=== PATIENT | female | born 1985 | race African-American/Black ===

== ENCOUNTER 2017-06-15 12:17 | Inpatient (IN) | payer OTHER ==
[2017-06-15 12:45] VITALS: BMI 35.2
[2017-06-15] MEDS ORDERED: SODIUM CHLORIDE 1,000 ML IV STA (12:47)
--- NOTE | 2017-06-15 12:54 | PDOC ---
History of Present Illness <Giovanny Meltonanda - Last Filed: 06/15/17 13:04> - General History Source: Patient - History of Present Illness Timing/Duration: reports: getting worse Quality: reports: severe <Kath RolandFrancescoOmayra - Last Filed: 06/15/17 15:07> <Janette Simon - Last Filed: 06/19/17 13:13> - General Chief Complaint: Vaginal Bleeding Stated Complaint: VAGINAL BLEEDING Time Seen by Provider: 06/15/17 12:29 Past History <Giovanny Meltonanda - Last Filed: 06/15/17 13:04> - Past Medical History Anemia: No - Surgical History Abdominal Surgery: No - Reproductive History (#): 3 Para: 2 Cervical CA: No Dysfunctional Uterine Bleeding: No Ectopic : No Endometrial CA: No Polycystic Ovaries: No Therapeutic (s) & number: Yes (1) Tubal Ligation: No - Suicide/Smoking/Psychosocial Hx Smoking Status: No Smoking History: Never smoked Have you smoked in the past 12 months: No Number of Cigarettes Smoked Daily: 0 Information on smoking cessation initiated: No Hx Alcohol Use: No Drug/Substance Use Hx: No Substance Use Type: None <Edel Roland - Last Filed: 06/15/17 15:07> <Janette Simon - Last Filed: 06/19/17 13:13> - Past Medical History Allergies/Adverse Reactions: Allergies Allergy/AdvReac Type Severity Reaction Status Date / Time oliver Allergy Rash Verified 06/15/17 18:45 No Known Drug Allergies Allergy Verified 06/15/17 18:45 Home Medications: Ambulatory Orders Ferrous Sulfate 325 mg PO DAILY 06/15/17 Medroxyprogesterone Acetate [Provera] 10 mg PO DAILY 06/15/17 Review of Systems - Review of Systems Constitutional: Yes: Weakness. No: Fever Respiratory: No: Shortness of Breath Cardiac (ROS): Yes: Lightheadedness. No: Chest Pain, Palpitations, Syncope ABD/GI: No: Nausea, Vomiting, Abdominal cramping <AsuncionDonaldOmayra Last Filed: 06/15/17 15:07> *Physical Exam - Vital Signs Last Vital Signs Temp Pulse Resp BP Pulse Ox 98.5 F 109 H 18 119/68 100 06/15/17 12:39 06/15/17 12:39 06/15/17 12:39 06/15/17 12:39 06/15/17 12:39 <Cherie Melton - Last Filed: 06/15/17 13:04> - Vital Signs Last Vital Signs Temp Pulse Resp BP Pulse Ox 98.5 F 109 H 18 119/68 100 06/15/17 12:39 06/15/17 12:39 06/15/17 12:39 06/15/17 12:39 06/15/17 12:39 - Physical Exam Comments: 06/15/17 12:54 appears mildly lethargic and pale 06/15/17 13:11 General Appearance: Yes: Appropriately Dressed HEENT: positive: Normal Voice Neck: positive: Supple Respiratory/Chest: positive: Lungs Clear, Normal Breath Sounds. negative: Respiratory Distress Cardiovascular: positive: Regular Rate, S1, S2 Gastrointestinal/Abdominal: positive: Soft. negative: Tender Musculoskeletal: negative: CVA Tenderness Extremity: positive: Normal Inspection Integumentary: positive: Dry, Warm Neurologic: positive: Fully Oriented, Alert, Normal Mood/Affect <Edel Roland - Last Filed: 06/15/17 15:07> - Vital Signs Last Vital Signs Temp Pulse Resp BP Pulse Ox 98.6 F 98 H 20 116/54 100 06/17/17 08:00 06/17/17 08:00 06/17/17 08:00 06/17/17 08:00 06/16/17 07:51 <Janette Simon - Last Filed: 06/19/17 13:13> ED Treatment Course - LABORATORY CBC & Chemistry Diagram: 06/15/17 13:05 06/15/17 13:05 <Edel Roland - Last Filed: 06/15/17 15:07> - LABORATORY CBC & Chemistry Diagram: 06/17/17 07:45 06/17/17 07:45 - ADDITIONAL ORDERS Additional order review: Laboratory Results 06/15/17 13:05 Blood Type O POSITIVE Antibody Screen Negative Crossmatch See Detail 06/15/17 13:05 RBC 1.76 L D MCV 90.9 MCHC 31.9 L RDW 15.7 H MPV 8.7 Neutrophils % 76.7 D Lymphocytes % 18.5 D Monocytes % 4.5 Eosinophils % 0.1 D Basophils % 0.2 - Medications Given in the ED: ED Medications Discontinued Medications Generic Name Dose Route Start Last Admin Trade Name Angelica PRN Reason Stop Dose Admin Acetaminophen 650 mg 06/15/17 18:21 06/15/17 18:21 Tylenol - PO 06/15/17 18:22 650 mg NOW ONE Administration Acetaminophen 650 mg 06/15/17 23:50 06/16/17 07:50 Tylenol - PO 650 mg Q6H PRN Administration FEVER OR PAIN Ferrous Sulfate 325 mg 06/16/17 10:00 06/17/17 12:37 Feosol - PO Not Given DAILY MARK Sodium Chloride 1,000 mls @ 1,000 mls/hr 06/15/17 12:47 06/15/17 13:04 Normal Saline - IV 06/15/17 13:46 1,000 mls/hr ASDIR STA Administration Medroxyprogesterone Acetate 10 mg 06/16/17 10:00 06/17/17 12:37 Provera - PO Not Given DAILY MARK Multivit/Folic Acid/Iron 1 tab 06/16/17 12:15 06/17/17 12:38 Vitamins (Sjr) - PO Not Given DAILY MARK <Janette Simon - Last Filed: 06/19/17 13:13> Medical Decision Making - Medical Decision Making 06/15/17 13:04 Dr. Damien You was paged at the office and the patient's case was discussed. ( [phone]) <Cherie Melton - Last Filed: 06/15/17 13:04> - Medical Decision Making 06/15/17 12:48 31-year-old female on control since 2013, here with dizziness and weakness in the setting of menorrhagia. Patient states she got her period on June 02 and has not stopped bleeding and passing large clots. Was seen in ED for same 5 days ago when hemoglobin at that time was 11 with unremarkable findings on ultrasound. Patient was discharged to follow-up with her PHYSICIAN/OPHTHALMOLOGIST. Patient states she saw her residential caregiver over the weekend and was started on iron pills and medroxyprogesterone and states bleeding has somewhat improved but still wearing adult diapers. Patient had since taken herself off her original control. States PHYSICIAN/OPHTHALMOLOGIST also did blood work and told her today via phone that hemoglobin was 8 on labs. Patient continues to have profound weakness and states she has not been to work since last week. Also now using adults diapers for bleeding. No chest pain, shortness of breath or syncope. See exam Symptomatic anemia 2/2 menorrhagia (possibly 2/2 OCP use) Was r/o for preg 5 days ago in ED w/ Hgb of 11 and unremarkable US Hgb 8 in residential caregiver's office 4 days ago on follow up Tachy to 109 in ED and appears pale -IVF -labs -senior advocate c/s -anticipate admission for blood transfusion 06/15/17 12:55 06/15/17 13:06 Pt w/ near syncope while walking to the restroom. Witnessed by boyfriend w/ no head injury or LOC. Pt denies any significant injuries at this time. BP 90s/60s on monitor. IVF and labs in progress. ED attg aware. I paged pt's PMD, Dr You and awaiting to hear back 06/15/17 13:11 06/15/17 13:11 06/15/17 13:34 Hgb 5.1!, down from 11, 5 days ago. 2 units PRBCs ordered. Will contact hospitalist and admit. Will also get PHYSICIAN/OPHTHALMOLOGIST on board 06/15/17 13:36 06/15/17 13:[address] You, patient's PCP, who states patient will need workup by PHYSICIAN/OPHTHALMOLOGIST to rule out source of bleed, i.e., cervical polyp versus malignancy 06/15/17 14:03 Hospitalist aware and pt admitted to Dr Sam. Pt currently stable w/ BP of 115/68. 06/15/17 15:07 At this time have not yet heard back from senior advocate, consult placed in [facility]. Pt remains stable <Edel Roland - Last Filed: 06/15/17 15:07> *DC/Admit/Observation/Transfer <Cherie Melton - Last Filed: 06/15/17 13:04> - Discharge Dispostion Admit: Yes <Edel Roland - Last Filed: 06/15/17 15:07> - Attestations Physician Attestion: I reviewed the case with the mid-level practitioner and agree with the mid- level practitioner's assessment, diagnosis and disposition. <Janette Simon - Last Filed: 06/19/17 13:13> Diagnosis at time of Disposition: Menorrhagia Qualifiers: Menorrahagia type: with irregular cycle Qualified Code(s): N92.1 - Excessive and frequent menstruation with irregular cycle; N92.1 - Excessive and frequent menstruation with irregular cycle - Discharge Dispostion Disposition: HOME Condition at time of disposition: Stable - Referrals
[2017-06-15 13:21] LABS: BASOPHIL 0.2 % (0-2.0); EOSINOPHIL 0.1 % (0-4.5); MCHC 31.9 g/dl (32.0-36.0); MEAN CELL VOLUME 90.9 fl (80-96); MEAN PLT VOLUME 8.7 fl (7.5-11.1); NEUTROPHILS 76.7 % (42.8-82.8); PLATELET COUNT 270 K/MM3 (134-434); RDW 15.7 % (11.6-15.6); WHITE BLOOD COUNT 15.3 K/mm3 (4.0-10.0)
[2017-06-15 13:59] LABS: INR 1.16 (0.82-1.09); PROTHROMBIN TIME (PATIENT) 13.1 SEC (9.98-11.88)
--- NOTE | 2017-06-15 14:02 | HP ---
CHIEF COMPLAINT: dizzy, continuous vaginal bleeding PCP: Dr. You HISTORY OF PRESENT ILLNESS: 31 yr old woman with no significant past medical history bibems due to progressively worsening dizzyness and light headedness for the past 4 days associated with vaginal bleeding. Vaginal bleeding started Jun 02, as per her usual menses but it did not stop. She was saturating overnight pads every 2 hours, then switched to adult diapers due heaviness, notes multiple clots. Was seen in the ED 06/11 for similar complaint. Was seen by her pcp on Thursday and started on Provera (10mg for 5 days and iron pills) which she started on Thursday afternoon. She is dizzy/lightheaded every time she gets up, is barely able to walk a few steps. Has been laying in bed for the past 4 days due to severity of dizziness. a/w occasional headache, blurry vision, exertional dyspnea, and occasionaly tingling at the tips of her fingers and toes. Has been on Camresse ../.15 since 2013, and has a 5-day menses about every 3-4 months, with moderate bleeding. denies weight loss, abx use recently. Since starting Provera notes decrease in vaginal bleeding. ER course was notable for: (1) hgb: 5.0 (2) 2units of prbc's ordered Recent Travel: went to [place] from mid-march, returned in early May - no new exposures, trauma, sick contacts. PAST MEDICAL HISTORY: no significant pmhx PAST SURGICAL HISTORY: c-sections x2, "jazmín olson" march 2016 CHILD MONITOR Hx: thinks she may have had an abnormal pap in the past however follow-up biopsy was negative for any pathology several years ago. menarche: pre-teen, on camresse so she gets about 3-4 periods per year without breakthrough spotting. Social History: 3 children: 13yrs old - no complications with or delivery, 9yr old - required emergent due to hypoxia, healthy baby no post-op complications, 4 yr old child - had a with no post-op complications. Smoking: denies Alcohol:denies Drugs: denies Family History: denies famx hx of cancer, htn, dm. does not know ages of mother/ grandmother's menopause. younger sister with irregular menses. Allergies oliver Allergy (Verified 06/11/17 07:48) Rash HOME MEDICATIONS: Home Medications Medication Instructions Recorded Ferrous Sulfate 325 mg PO DAILY 06/15/17 Medroxyprogesterone Acetate 10 mg PO DAILY 06/15/17 [Provera] REVIEW OF SYSTEMS CONSTITUTIONAL: Present: generalized weakness Absent: fever, chills, diaphoresis, , malaise, loss of appetite, weight change HEENT: Present: blurry vision when dizzy with exertion Absent: rhinorrhea, nasal congestion, throat pain, throat swelling, difficulty swallowing, mouth swelling, ear pain, eye pain, visual changes CARDIOVASCULAR: Present: lightheadedness when trying to walk Absent: chest pain, syncope, palpitations, irregular heart rate, peripheral edema RESPIRATORY: Present: dyspnea with exertion, Absent: cough, shortness of breath, orthopnea, wheezing, stridor, hemoptysis GASTROINTESTINAL: Absent: abdominal pain, abdominal distension, nausea, vomiting, diarrhea, constipation, melena, hematochezia GENITOURINARY: Absent: dysuria, frequency, urgency, hesitancy, hematuria, flank pain, genital pain MUSCULOSKELETAL: Absent: myalgia, arthralgia, joint swelling, back pain, neck pain SKIN: Absent: rash, itching, pallor HEMATOLOGIC/IMMUNOLOGIC: Absent: easy bleeding, easy bruising, lymphadenopathy, frequent infections ENDOCRINE: Absent: unexplained weight gain, unexplained weight loss, heat intolerance, cold intolerance NEUROLOGIC: Present: dizziness Absent: headache, focal weakness or paresthesias, , unsteady gait, seizure, mental status changes, bladder or bowel incontinence PHYSICAL EXAMINATION Vital Signs - 24 hr 06/15/17 06/15/17 12:39 13:09 Temperature 98.5 F Pulse Rate 109 H Pulse Rate [ 97 H Left Radial] Respiratory 18 20 Rate Blood Pressure 119/68 Blood Pressure 92/53 [Right Arm] O2 Sat by Pulse 100 98 Oximetry (%) GENERAL: Awake, alert, and in no acute distress. HEAD: Normal with no signs of trauma. EYES: Pupils equal, round and reactive to light, extraocular movements intact, sclera anicteric, conjunctival pallor. No lid lag. no proptosis EARS, NOSE, THROAT: nares patent, oropharynx clear without exudates. Moist mucous membranes. pale tongue NECK: Normal range of motion, supple without lymphadenopathy, JVD, or masses.no thyromegaly. LUNGS: Breath sounds equal, clear to auscultation bilaterally. No wheezes, and no crackles. No accessory muscle use. HEART: Regular rate and rhythm, normal S1 and S2 without murmur, rub or gallop. ABDOMEN: Soft, nontender, not distended, normoactive bowel sounds, no guarding, no rebound, no masses. lower abdomen with well-healed scar MUSCULOSKELETAL: Normal range of motion at all joints. No bony deformities or tenderness. No CVA tenderness. UPPER EXTREMITIES: 2+ radial pulses, warm, well-perfused. No cyanosis. No clubbing. No peripheral edema. LOWER EXTREMITIES: 2+ dp pulses, warm, well-perfused. No calf tenderness. No peripheral edema. NEUROLOGICAL: Cranial nerves II-XII intact. Normal speech. facial symmetry. no tremor PSYCHIATRIC: Cooperative. Good eye contact. Appropriate mood and affect. SKIN: Warm, dry, normal turgor, no rashes or lesions noted, normal capillary refill. Laboratory Results - last 24 hr 06/15/17 06/15/17 13:05 13:05 WBC 15.3 H D RBC 1.76 L D Hgb 5.1 L* D Hct 16.0 L D MCV 90.9 MCH 29.0 MCHC 31.9 L RDW 15.7 H Plt Count 270 MPV 8.7 Neutrophils % 76.7 D Lymphocytes % 18.5 D Monocytes % 4.5 Eosinophils % 0.1 D Basophils % 0.2 Crossmatch See Detail ASSESSMENT/PLAN: 31 yr old woman presents with the ED with symptomatic anemia found to have hgb of 5.1. - u/s on previous ed visit with thicked endometrium and cervical nabothian cysts #Acute normocytic anemia secondary to dynfuctional uterine bleeding - 2 units prbc's ordered in ED, f/u cbc in the AM - monitor closely post-transfusion, she had low-grade fever 100.1F in the ED after 1st unit of prbc, tylenol po - Dr. Lopez from retail [employer] teammate has been consulted for further work-up given duration and severity of bleeding, may need D&C - continue provera 10mg po started 06/13 to be completed 06/18 for 5 day course - tibc, ferritin, iron, transferrin ordered to r/o iron deficiency incase she requires IV iron #DVt: acute bleed, defer medical ac, scd's while in bed, encourage ambulation #Diet: regular #dispo: likely d/c in the AM if no [employer] teammate procedure indicated at this time and adequate response to prbc's. Visit type - Emergency Visit Emergency Visit: Yes ED Registration Date: 06/15/17 Care time: The patient presented to the Emergency Department on the above date and was hospitalized for further evaluation of their emergent condition. - New Patient This patient is new to me today: Yes Date on this admission: 06/15/17 - Critical Care Critical Care patient: No
[2017-06-15 14:10] LABS: ALBUMIN 2.6 g/dl (3.4-5.0); ALK PHOS 46 U/L (45-117); ANION GAP 11 (8-16); BILIRUBIN,TOTAL 0.2 mg/dL (0.2-1.0); CALCIUM 7.7 mg/dL (8.5-10.1); CO2 23 mmol/L (21-32); CREATININE 0.8 mg/dL (0.55-1.02); GLUCOSE,RANDOM 103 mg/dL (74-106); SGOT/AST 10 U/L (15-37); SGPT/ALT 20 U/L (12-78)
[2017-06-15 14:50] LABS: ANISOCYTOSIS 2+; MACROCYTOSIS FEW; MICROCYTOSIS FEW; POLYCHROMASIA 3+
[2017-06-15 14:51] LABS: TARGET CELLS 1+
[2017-06-15] MEDS ORDERED: ACETAMINOPHEN 325 MG TABLET (FP) ONE (18:19)
[2017-06-15] MEDS ORDERED: ACETAMINOPHEN 325 MG TABLET (FP) PO ONE (18:21)
--- NOTE | 2017-06-15 18:33 | PN ---
Teaching Attending Note Name of Resident: Lisa Ortiz ATTENDING PHYSICIAN STATEMENT I saw and evaluated the patient. I reviewed the resident's note and discussed the case with the resident. I agree with the resident's findings and plan as documented. SUBJECTIVE: This is a 31 year old woman with no significant past medical history who comes to the ER complaining of dizziness and weakness. She says that her menses started on 06/02. Bleeding has continued until now. She was seen in the ER on 06/11. Hemoglobin was 11.4 and TVUS showed slightly thickened endometrium and complex nabothian cysts. On 06/12, she saw her PCP and was found to have hemoglobin 8. She was prescribed Provera and iron which she started on 06/13. The bleeding has improved somewhat since but she has become dizzy and weak. OBJECTIVE: Vital Signs Period Temp Pulse Resp BP Sys/Gm Pulse Ox Last 24 Hr 98.4 F-98.5 F 93-109 18-20 92-157/53-92 97-100 HEENT: Conjunctivae and tongue are pale HEART: S1S2, tachycardic LUNGS: Clear ABDOMEN: Obese, soft, non-tender, non-distended, normal BS EXTREMITIES: No edema Laboratory Tests 06/15/17 06/15/17 06/15/17 13:05 13:05 13:05 WBC 15.3 H D RBC 1.76 L D Hgb 5.1 L* D Hct 16.0 L D MCV 90.9 MCH 29.0 MCHC 31.9 L RDW 15.7 H Plt Count 270 MPV 8.7 Neutrophils % 76.7 D Lymphocytes % 18.5 D Monocytes % 4.5 Eosinophils % 0.1 D Basophils % 0.2 Polychromasia 3+ Anisocytosis 2+ Microcytosis Few Macrocytosis Few Target Cells 1+ PT with INR 13.10 H INR 1.16 H Sodium 141 Potassium 3.8 Chloride 107 Carbon Dioxide 23 Anion Gap 11 BUN 8 Creatinine 0.8 Creat Clearance w eGFR > 60 Random Glucose 103 Calcium 7.7 L Total Bilirubin 0.2 D AST 10 L D ALT 20 D Alkaline Phosphatase 46 D Total Protein 6.0 L D Albumin 2.6 L D Serum , Qual Blood Type Antibody Screen Crossmatch 06/15/17 06/15/17 13:05 13:09 WBC RBC Hgb Hct MCV MCH MCHC RDW Plt Count MPV Neutrophils % Lymphocytes % Monocytes % Eosinophils % Basophils % Polychromasia Anisocytosis Microcytosis Macrocytosis Target Cells PT with INR INR Sodium Potassium Chloride Carbon Dioxide Anion Gap BUN Creatinine Creat Clearance w eGFR Random Glucose Calcium Total Bilirubin AST ALT Alkaline Phosphatase Total Protein Albumin Serum , Qual Negative Blood Type O POSITIVE Antibody Screen Negative Crossmatch See Detail Home Medications Medication Instructions Recorded Ferrous Sulfate 325 mg PO DAILY 06/15/17 Medroxyprogesterone Acetate 10 mg PO DAILY 06/15/17 [Provera] ASSESSMENT AND PLAN: This is a 31 year old woman with no significant past medical history who presented to the ER with dizziness and weakness. 1. Acute blood loss anemia secondary to menorrhagia - Transfuse 2 units PRBCs - Continue Provera, ferrous sulfate - Lab Rep consult
[2017-06-15 23:21] LABS: URINE APPEARANCE SLCLOUDY; URINE BILIRUBIN NEGATIVE (NEGATIVE); URINE BLOOD 3+ (NEGATIVE); URINE COLOR YELLOW; URINE GLUCOSE (UA) NEGATIVE (NEGATIVE); URINE KETONE TRACE (NEGATIVE); URINE NITRITE NEGATIVE (NEGATIVE); URINE UROBILINOGEN NEGATIVE mg/dL (0.2-1.0)
[2017-06-15 23:35] LABS: URINE PROTEIN 1+ (NEGATIVE)
[2017-06-15 23:37] LABS: URINE MUCUS MANY; URINE RBC 462 /hpf (0-3); URINE WBC 16 /hpf (3-5)
[2017-06-16] MEDS ORDERED: ACETAMINOPHEN 325 MG TABLET (FP) ONE ×2 (00:01→07:39)
[2017-06-16] MEDS: ACETAMINOPHEN 325 MG TABLET (FP) PO PRN ×2 (00:03→07:50)
--- NOTE | 2017-06-16 05:34 | CON.OBG ---
Consult Consult Specialty:: FUELS ENGINEER Reason for Consultation:: Abnormal vaginal bleeding - History of Present Illness Chief Complaint: Abnormal vaginal bleeding History of Present Illness: 31 yo Para 3, LMP 06/02/17, presents to ER c/o vaginal bleeding. She admits to bleeding since May. On June 11 she was seen at the hospital for the same complaint ad a sonogram was done. Today she returns to ER because of dizziness. Sonogram reviewed and failed to show evidence of uterine masses. exam is negative. - History Source History Provided By: Patient Limitations to Obtaining History: No Limitations - Past Medical History ...LMP: 06/02/17 ...: No - Past Surgical History Past Surgical History: Yes: - Alcohol/Substance Use Hx Alcohol Use: No History of Substance Use: reports: None - Smoking History Smoking history: Never smoked Have you smoked in the past 12 months: No Aproximately how many cigarettes per day: 0 - Social History History of Recent Travel: No Home Medications - Allergies Allergies/Adverse Reactions: Allergies Allergy/AdvReac Type Severity Reaction Status Date / Time oliver Allergy Rash Verified 06/15/17 18:45 No Known Drug Allergies Allergy Verified 06/15/17 18:45 - Home Medications Home Medications: Ambulatory Orders Ferrous Sulfate 325 mg PO DAILY 06/15/17 Medroxyprogesterone Acetate [Provera] 10 mg PO DAILY 06/15/17 Family Disease History - Family Disease History Family History: Unremarkable Review of Systems - Review of Systems Constitutional: reports: Weakness Eyes: reports: No Symptoms HENT: reports: No Symptoms Neck: reports: No Symptoms Cardiovascular: reports: No Symptoms Respiratory: reports: No Symptoms Gastrointestinal: reports: No Symptoms Genitourinary: reports: Vaginal Bleeding Breasts: reports: No Symptoms Reported Musculoskeletal: reports: No Symptoms Neurological: reports: No Symptoms Psychiatric: reports: No Symptoms Pain Intensity: 2 Physical Exam-WIPING RAG WASHER Vital Signs: Vital Signs Temperature 98.2 F 06/15/17 22:25 Pulse Rate 92 H 06/15/17 23:49 Respiratory Rate 16 06/15/17 23:49 Blood Pressure 124/60 06/15/17 23:49 O2 Sat by Pulse Oximetry (%) 100 06/15/17 23:49 Constitutional: Yes: Well Nourished Eyes: Yes: Conjunctiva Clear HENT: Yes: Atraumatic Neck: Yes: Supple Cardiovascular: Yes: Regular Rate and Rhythm Respiratory: Yes: Regular Gastrointestinal: Yes: Normal Bowel Sounds External Genitalia: Yes: Normal Vaginal Exam: Yes: Bleeding Cervix: Yes: Other (Open os) Uterus: Yes: Normal Integumentary: Yes: WNL Neurological: Yes: Alert, Oriented ...Motor Strength: WNL Psychiatric: Yes: Alert, Oriented Assessment/Plan Menorragia Anemia Tapered dose of OCP ( 3 pills for 3 days, 2 pills for 2 days then 1 pill daily until bleeding stops ) F/U with WIPING RAG WASHER as outpatient
[2017-06-16 06:06] LABS: SERUM IRON 161 ug/dL (27-159); TOTAL IRON BINDING CAPACITY 359 ug/dL (250-450); UIBC 198 ug/dL (131-425)
--- NOTE | 2017-06-16 07:05 | EKG ---
Test Reason : Blood Pressure : / mmHG Vent. Rate : 096 BPM Atrial Rate : 096 BPM P-R Int : 150 ms QRS Dur : 072 ms QT Int : 380 ms P-R-T Axes : 037 018 014 degrees QTc Int : 480 ms NORMAL SINUS RHYTHM NONSPECIFIC T WAVE ABNORMALITY PROLONGED QT ABNORMAL ECG NO PREVIOUS ECGS AVAILABLE Confirmed by KAMILAH ARANA, GARETH ([id number]) on 06/16/2017 7:05:08 AM Referred By: Confirmed By:GARETH TRIANA MD
[2017-06-16 07:34] LABS: BASOPHIL 0.3 % (0-2.0); EOSINOPHIL 0.8 % (0-4.5); MCH 29.3 pg (25.7-33.7); MCHC 34.3 g/dl (32.0-36.0); MEAN CELL VOLUME 85.4 fl (80-96); MEAN PLT VOLUME 7.6 fl (7.5-11.1); NEUTROPHILS 58.6 % (42.8-82.8); PLATELET COUNT 232 K/MM3 (134-434); RDW 15.9 % (11.6-15.6); WHITE BLOOD COUNT 11.5 K/mm3 (4.0-10.0)
[2017-06-16 09:55] LABS: URINE LEUK ESTERASE Negative (NEGATIVE)
--- NOTE | 2017-06-16 10:37 | PN ---
Physical Exam: SUBJECTIVE: Patient seen at the bedside with her in attendance. As per patient, she feels well, denies any dizziness or shortness of breath. As per RN, patient had a small blood clot on underwear today. Patient states that her blood was not drawn earlier this morning and the lab values that show her hmg/hct to be normalized are in fact an error. An incident report to follow. OBJECTIVE: hmg/hmc is 7.0/20.4 s/p 2 units of PRBC, will order 1 more unit of blood and order CBC after blood is drawn. Spoke to patient about stating overnight so that we can draw her blood in the morning to assure that her hmg/hct are more stable vitamin ordered Vital Signs Period Temp Pulse Resp BP Sys/Mg Pulse Ox Last 24 Hr 98.1 F-99.8 F 85-100 16-20 104-160/60-92 97-100 GENERAL: The patient is awake, alert, and fully oriented, in no acute distress. HEAD: Normal with no signs of trauma. EYES: PERRL, extraocular movements intact, sclera anicteric, conjunctiva clear. No ptosis. ENT: Ears normal, nares patent, oropharynx clear without exudates, moist mucous membranes. NECK: Trachea midline, full range of motion, supple. LUNGS: clear to auscultation HEART: rrr NEUROLOGICAL: Normal speech, gait not observed. PSYCH: Normal mood, normal affect. Laboratory Results - last 24 hr 06/15/17 06/15/17 06/15/17 14:16 14:16 14:16 WBC RBC Hgb Hct MCV MCH MCHC RDW Plt Count MPV Neutrophils % Lymphocytes % Monocytes % Eosinophils % Basophils % Iron 161 H TIBC 359 Iron Saturation 45 Transferrin 299 Ferritin 14.237 06/16/17 06/16/17 05:55 07:24 WBC 4.1 D 11.5 H D RBC 4.63 D 2.39 L D Hgb 12.3 D 7.0 L D Hct 37.3 D 20.4 L D MCV 80.6 85.4 MCH 26.6 29.3 D MCHC 33.0 34.3 RDW 14.9 15.9 H Plt Count 346 D 232 D MPV 7.2 L D 7.6 Neutrophils % 62.4 58.6 Lymphocytes % 11.3 D 32.6 D Monocytes % 17.2 H D 7.7 Eosinophils % 6.7 H D 0.8 D Basophils % 2.4 H D 0.3 Iron TIBC Iron Saturation Transferrin Ferritin Active Medications Generic Name Dose Route Start Last Admin Trade Name Angelica PRN Reason Stop Dose Admin Acetaminophen 650 mg 06/15/17 23:50 06/16/17 07:50 Tylenol - PO 650 mg Q6H PRN Administration FEVER OR PAIN Ferrous Sulfate 325 mg 06/16/17 10:00 Feosol - PO DAILY [facility] Medroxyprogesterone Acetate 10 mg 06/16/17 10:00 Provera - PO DAILY [facility] Multivit/Folic Acid/Iron 1 tab 06/16/17 10:30 Vitamins (Sjr) - PO DAILY [facility] ASSESSMENT/PLAN: Patient is a 31 year old female (Para 3) who has been on control since 2013. 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 On admission patient's states that her period began on June 02 and since then, bleeding has since persisted. She reports large clots and having to change sanitary pads numerous times throughout the day. She came to the ED for the same symptoms 5 days prior but her hmg at that time was 11 and ultrasound workup was negative. She was discharged and recommended to follow up with the [facility]. Patient saw her PCP over the weekend and her hmg was noted to be low, so she was started on iron pills and medroxyprogesterone. She states the bleeding improved but did not resolve. She continued to bleed and had to wear adult diapers. Patient returns to the ER on 06/15/2017 and was noted that her hemoglobin was 5. On admission she was symptomatic with increased/generalized weakness and tachycardia On exam, she looks and feels better, but her hmg/hct remain low (7/20.4), will transfuse 1 more unit of blood. Plan is to repeat CBC after prbc transfusion and repeat CBC in a.m. Imagin06/13/2017: Transvaginal ultrasound: slightly thickened endometrim and complex nobothian cysts, normal uterus, no uterine masses, slightly thickened endometrium of 10mm [employer] [employer] Menorrhagia/acute blood loss/symptomatic anemia, acute A/P: test negative, she presents to the ER with symptomatic anemia secondary to menorrhagia In ED she was also tachycardic and pallorous She was transfused 2 units of PRBC overnight with some improvement Will transfuse 1 unit of prbc today and repeat CBC post transfusion [facility] consulted, notes reviewed vitamin ordered, On Ferrous sulfate 325mg daily, on medroxyprogesterone 10mg daily as per [facility] [employer] Monitor for symptomatic anemia, monitor vitals ID: History of MRSA on right posterior leg, wound treated as per patient in 2009 A/P: Right posterior leg well healed, closed. Pt states she was treated with antibiotics Call placed to [facility], message left to discuss need for isolation, if any F.E.N. Fluids: Tolerating PO Electrolytes: monitor with bmp Nutrition: regular diet Prophylaxis DVT: SCDs for DVT, chemical a/c contraindicated GI: deferred Disposition: OBS patient. full code. Visit type - Emergency Visit Emergency Visit: Yes ED Registration Date: 06/15/17 Care time: The patient presented to the Emergency Department on the above date and was hospitalized for further evaluation of their emergent condition. - New Patient This patient is new to me today: Yes Date on this admission: 06/16/17 - Critical Care Critical Care patient: No - Discharge Referral Referred to [facility] Med P.C.: No
[2017-06-16] MEDS: FERROUS SO4 325 MG TABLET (FP) PO SCH (12:16)
[2017-06-16] MEDS: PRENATAL VITAMINS W/ FOLIC ACID TABLET (FP) PO SCH (12:17)
[2017-06-16 16:04] LABS: BASOPHIL 0.5 % (0-2.0); EOSINOPHIL 0.9 % (0-4.5); MCH 29.7 pg (25.7-33.7); MCHC 34.2 g/dl (32.0-36.0); MEAN CELL VOLUME 86.8 fl (80-96); MEAN PLT VOLUME 8.3 fl (7.5-11.1); NEUTROPHILS 54.8 % (42.8-82.8); PLATELET COUNT 266 K/MM3 (134-434); RDW 15.5 % (11.6-15.6); WHITE BLOOD COUNT 11.9 K/mm3 (4.0-10.0)
[2017-06-17 08:19] LABS: BASOPHIL 0.3 % (0-2.0); MCH 29.8 pg (25.7-33.7); MCHC 34.2 g/dl (32.0-36.0); MEAN PLT VOLUME 7.5 fl (7.5-11.1); PLATELET COUNT 255 K/MM3 (134-434); WHITE BLOOD COUNT 10.4 K/mm3 (4.0-10.0)
[2017-06-17 08:48] LABS: ALBUMIN 2.4 g/dl (3.4-5.0); ALK PHOS 44 U/L (45-117); ANION GAP 6 (8-16); BILIRUBIN,TOTAL 0.3 mg/dL (0.2-1.0); CALCIUM 7.6 mg/dL (8.5-10.1); CO2 26 mmol/L (21-32); CREATININE 0.8 mg/dL (0.55-1.02); GLUCOSE,RANDOM 89 mg/dL (74-106); SGOT/AST 21 U/L (15-37); SGPT/ALT 29 U/L (12-78); TOT PROT 5.3 g/dl (6.4-8.2)
--- NOTE | 2017-06-17 09:23 | DS ---
Physical Exam: SUBJECTIVE: Patient seen and examined OBJECTIVE: Vital Signs Period Temp Pulse Resp BP Sys/Mg Pulse Ox Last 24 Hr 98.2 F-98.8 F 90-99 18-20 110-124/48-86 PHYSICAL EXAM GENERAL: The patient is awake, alert, and fully oriented, in no acute distress. HEAD: Normal with no signs of trauma. EYES: PERRL, extraocular movements intact, sclera anicteric, conjunctiva clear. ENT: Ears normal, nares patent, oropharynx clear without exudates, moist mucous membranes. NECK: Trachea midline, full range of motion, supple. LUNGS: Breath sounds equal, clear to auscultation bilaterally, no wheezes, no crackles, no accessory muscle use. HEART: Regular rate and rhythm, S1, S2 without murmur, rub or gallop. ABDOMEN: Soft, nontender, nondistended, normoactive bowel sounds, no guarding, no rebound, no hepatosplenomegaly, no masses. EXTREMITIES: 2+ pulses, warm, well-perfused, no edema. NEUROLOGICAL: Cranial nerves II through XII grossly intact. Normal speech, gait not observed. PSYCH: Normal mood, normal affect. SKIN: Warm, dry, normal turgor, no rashes or lesions noted. LABS Laboratory Results - last 24 hr 06/16/17 06/16/17 06/16/17 05:55 07:24 15:45 WBC 11.5 H 11.9 H RBC 2.39 L D 2.87 L D Hgb 7.0 L D 8.5 L D Hct 20.4 L D 24.9 L D MCV 85.4 86.8 MCH 29.3 29.7 MCHC 34.3 34.2 RDW 15.9 H 15.5 Plt Count 232 266 MPV 7.6 D 8.3 Neutrophils % 58.6 D 54.8 Lymphocytes % 32.6 D 37.2 Monocytes % 7.7 6.6 Eosinophils % 0.8 D 0.9 Basophils % 0.3 0.5 Sodium Potassium Chloride Carbon Dioxide Anion Gap BUN Creatinine Creat Clearance w eGFR Random Glucose Calcium Total Bilirubin AST ALT Alkaline Phosphatase Total Protein Albumin 06/17/17 06/17/17 07:45 07:45 WBC 10.4 H RBC 2.67 L Hgb 8.0 L Hct 23.2 L MCV 87.0 MCH 29.8 MCHC 34.2 RDW 16.0 H Plt Count 255 MPV 7.5 Neutrophils % 59.0 Lymphocytes % 32.4 Monocytes % 6.3 Eosinophils % 2.0 D Basophils % 0.3 Sodium 143 Potassium 4.2 Chloride 111 H Carbon Dioxide 26 Anion Gap 6 L BUN 8 Creatinine 0.8 Creat Clearance w eGFR > 60 Random Glucose 89 Calcium 7.6 L Total Bilirubin 0.3 D AST 21 D ALT 29 D Alkaline Phosphatase 44 L Total Protein 5.3 L Albumin 2.4 L HOSPITAL COURSE: Date of Admission:06/15/17 Date of Discharge: 06/17/17 Minutes to complete discharge: 45 Discharge Summary Reason For Visit: MENORRHAGIA,SECONDARY ANEMIA Current Active Problems Menorrhagia (Acute) Condition: Stable - Instructions Diet, Activity, Other Instructions: Eat a diet high in iron- leafy green vegatables, liver, beets. Take iron supplements as previously prescribed. Drink plenty of fluids. Take Provera 3 pills daily for the next 3 days then 2 pills daily for the next 2 days then resume 1 pill daily. May return to 1 pill daily if bleeding stops. Call Dr. Lopez's office for appointment within the next 1 week. Return to the ER for vaginal bleeding more than 1 soaked pads per hour, dizziness, shortness of breath, chest pain or any other concerns. Thank you for choosing us to provide your acute medical needs. Referrals: Giacomo You [Primary Care Provider] - Disposition: HOME - Home Medications Comprehensive Discharge Medication List: Ambulatory Orders Ferrous Sulfate 325 mg PO DAILY 06/15/17 Medroxyprogesterone Acetate [Provera] 10 mg PO DAILY 06/15/17 Problem List - Problems (2) Symptomatic anemia Code(s): D64.9 - ANEMIA, UNSPECIFIED (3) Personal history of MRSA (methicillin resistant Staphylococcus aureus) Code(s): Z86.14 - PERSONAL HISTORY OF METHICILLIN RESIS STAPH INFECTION This patient is new to me today: Yes Date on this admission: 06/17/17 Emergency Visit: Yes ED Registration Date: 06/15/17 Care time: The patient presented to the Emergency Department on the above date and was hospitalized for further evaluation of their emergent condition. Critical Care patient: No - Discharge Referral Referred to [facility] Med P.C.: No
[2017-06-17 09:25] VITALS: BP 116/54; PULSE 98; TEMP 98.6
[2017-06-17] MEDS: FERROUS SO4 325 MG TABLET (FP) PO SCH (12:37)
[2017-06-17] MEDS: PRENATAL VITAMINS W/ FOLIC ACID TABLET (FP) PO SCH (12:38)
== END 2017-06-17 10:00 | disposition home or self-care (01) | DRG 532 ==
LOC: JER 12:17 → JERBED 13:59 → MERGE 13:59 → OBSVTOIN 17:47 → J3W 06-16 08:25
PROVIDERS: ADMIT Internal Medicine; ATTEND Nurse Practitioner Family
PROC: 30233H1 Transfusion of Nonautologous Whole Blood into Peripheral Vein, Percutaneous Approach (ICD-10-PCS; principal; 2017-06-16)
DX: N92.1 Excessive and frequent menstruation with irregular cycle (principal); D62 Acute posthemorrhagic anemia; N88.8 Other specified noninflammatory disorders of cervix uteri; R50.9 Fever, unspecified; E66.9 Obesity, unspecified; Z68.35 Body mass index [BMI] 35.0-35.9, adult
CPT/HCPCS: 36415; 36430; 71010-TC; 80053; 81003; 81015; 82728; 83540; 83550; 84466; 84703; 85025; 85610; 86850; 86900; 86901; 86922; 87081; 93005; 93010; 99285-25; G0378; P9038; P9058

== ENCOUNTER 2018-07-27 09:35 | Emergency (ER) | payer OTHER ==
[2018-07-27 09:57] VITALS: BMI 37.8
--- NOTE | 2018-07-27 11:16 | PDOC ---
History of Present Illness - General Chief Complaint: Vaginal Sxs Stated Complaint: VAGINAL BLEEDING Time Seen by Provider: 07/27/18 10:48 History Source: Patient Exam Limitations: Clinical Condition - History of Present Illness Initial Comments: 07/27/18 11:11 Patient with h/o menorrhagia causing anemia requiring blood transfusion a year ago present in complains of 1 week h/o heavy vaginal bleeding soaking many pad( pt not sure how many pads/day). pt report feeling fatigue. Denies SOB, Palpitations, dizziness, lightheadedness, N/V, CP. Denies any other symptoms Timing/Duration: 1 week Past History - Past Medical History Allergies/Adverse Reactions: Allergies Allergy/AdvReac Type Severity Reaction Status Date / Time oliver Allergy Rash Verified 07/27/18 09:53 No Known Drug Allergies Allergy Verified 07/27/18 09:53 Home Medications: Ambulatory Orders Ferrous Sulfate 325 mg PO DAILY 06/15/17 Medroxyprogesterone Acetate [Provera] 10 mg PO DAILY 06/15/17 Anemia: No COPD: No - Surgical History Abdominal Surgery: No - Reproductive History (#): 3 Para: 2 Cervical CA: No Dysfunctional Uterine Bleeding: No Ectopic : No Endometrial CA: No Polycystic Ovaries: No Therapeutic (s) & number: Yes (1) Tubal Ligation: No - Immunization History Immunization Up to Date: Yes - Suicide/Smoking/Psychosocial Hx Smoking Status: No Smoking History: Never smoked Have you smoked in the past 12 months: No Number of Cigarettes Smoked Daily: 0 Hx Alcohol Use: No Drug/Substance Use Hx: No Substance Use Type: None Review of Systems - Review of Systems Able to Perform ROS?: Yes Is the patient limited Fijian proficient: No Constitutional: Yes: Malaise. No: Weakness HEENTM: No: Blurred Vision, Recent change in vision, Double Vision Respiratory: No: Symptoms reported Cardiac (ROS): No: Symptoms Reported, See HPI, Chest Pain, Edema, Irregular Heart Rate, Lightheadedness, Palpitations, Syncope, Chest Tightness, Other ABD/GI: No: Symptoms Reported, See HPI, Abdominal Distended, Abd. Pain w/ defecation, Blood Streaked Bowels, Constipated, Diarrhea, Difficulty Swallowing , Nausea, Poor Appetite, Poor Fluid Intake, Rectal Bleeding, Vomiting, Indigestion, Abdominal cramping, Tarry Stools, Other : Yes: Other (vaginal bleeding). No: Burning, Frequency, Flank Pain, Hematuria, Urgency Integumentary: No: Symptoms Reported, Bruising, Change in Color, Pallor Neurological: No: Symptoms reported, See HPI, Headache, Numbness, Paresthesia, Pre-Existing Deficit, Seizure, Tingling, Tremors, Weakness, Unsteady Gait, Ataxia, Dizziness, Other All Other Systems: Reviewed and Negative *Physical Exam - Vital Signs Last Vital Signs Temp Pulse Resp BP Pulse Ox 98.1 F 70 17 125/84 99 07/27/18 09:53 07/27/18 09:53 07/27/18 09:53 07/27/18 09:53 07/27/18 09:53 - Physical Exam General Appearance: Yes: Nourished, Appropriately Dressed. No: Apparent Distress HEENT: positive: EOMI, LU, Normal ENT Inspection, Normal Voice, Symmetrical, TMs Normal, Pharynx Normal Neck: positive: Trachea midline, Supple. negative: Tender Respiratory/Chest: positive: Lungs Clear, Normal Breath Sounds. negative: Chest Tender, Respiratory Distress, Accessory Muscle Use, Labored Respiration Cardiovascular: positive: Regular Rhythm, Regular Rate, S1, S2 (normal ). negative: Murmur, Gallop/S3, Gallop/S4 Female Pelvic Exam: positive: normal external exam, cervical os closed, normal adnexa, vaginal bleeding (scant amount of dark blood in vaginal vault. no active vaginal bleeding). negative: lesions, adnexal tenderness Gastrointestinal/Abdominal: positive: Normal Bowel Sounds, Flat, Soft. negative : Tender, Organomegaly, Pulsatile Mass Musculoskeletal: positive: Normal Inspection Extremity: positive: Normal Capillary Refill, Normal Inspection, Normal Range of Motion Neurologic: positive: Fully Oriented, Alert, Normal Response Moderate Sedation - Procedure Monitoring Vital Signs: Procedure Monitoring Vital Signs Temperature 98.1 F 07/27/18 09:53 Pulse Rate 70 07/27/18 09:53 Respiratory Rate 17 07/27/18 09:53 Blood Pressure 125/84 07/27/18 09:53 O2 Sat by Pulse Oximetry (%) 99 07/27/18 09:53 ED Treatment Course - LABORATORY CBC & Chemistry Diagram: 07/27/18 11:20 07/27/18 11:20 - RADIOLOGY Radiology Studies Ordered: Category Date Time Status PELVIS(OTHER) US [US] Stat Ultrasound 07/27/18 11:07 Ordered Medical Decision Making - Medical Decision Making 07/27/18 11:18 Patient with h/o menorrhagia presenting with complains 1 week h/o heavy vaginal bleeding and fatigue. exam significant for scant dark blood in vaginal vault otherwise unremarkable. CBC,CMP,Type and screen, PT/PTT/fibrinogen labs sent. pelvic ultrasound ordered. treat based on lab results 07/27/18 12:50 CBC shows no anemia or acute pathology. chemistry is normal. beta hcg neg. coag labs normal. pelvic ultrasound pending. symptoms likely menorrhagia and pt will be discharged home with CERTIFIED ORTHOTIST follow-up if negative ultrasound 07/27/18 13:19 pelvic ultrasound shows mildly thickened endometrium otherwise normal. patient stable for discharge with CERTIFIED ORTHOTIST follow-up *DC/Admit/Observation/Transfer Diagnosis at time of Disposition: Menorrhagia Qualifiers: Menorrahagia type: with irregular cycle Qualified Code(s): N92.1 - Excessive and frequent menstruation with irregular cycle - Discharge Dispostion Disposition: HOME Condition at time of disposition: Stable Decision to Admit order: No - Referrals Referrals: Tang Franco MD [Staff Physician] - - Patient Instructions Printed Discharge Instructions: DI for Vaginal Bleeding Additional Instructions: your labs and ultrasound was normal. no anemia on labs. increase fluid intake. rest. follow-up with referred CERTIFIED ORTHOTIST for management of excessive bleeding - Post Discharge Activity
[2018-07-27 11:33] LABS: BASO % 0.2 % (0-2.0); EOS % 2.1 % (0-4.5); HEMATOCRIT 37.1 % (32.4-45.2); HEMOGLOBIN 12.9 GM/dL (10.7-15.3); LYMPH % 36.8 % (8-40); MCH 30.3 pg (25.7-33.7); MCHC 34.6 g/dl (32.0-36.0); MEAN CELL VOLUME 87.6 fl (80-96); MEAN PLT VOLUME 8.7 fl (7.5-11.1); MONO % 8.2 % (3.8-10.2); NEUT % 52.7 % (42.8-82.8); PLATELET COUNT 302 K/MM3 (134-434); RBC 4.24 M/mm3 (3.60-5.2); RDW 14.6 % (11.6-15.6); WHITE BLOOD COUNT 8.8 K/mm3 (4.0-10.0)
[2018-07-27 11:34] LABS: URINE APPEARANCE CLEAR; URINE BILIRUBIN NEGATIVE (<2.0 mg/dL); URINE COLOR LTYELLOW; URINE GLUCOSE (UA) NEGATIVE (NEGATIVE); URINE KETONE NEGATIVE (NEGATIVE); URINE LEUK ESTERASE NEGATIVE (NEGATIVE); URINE NITRITE NEGATIVE (NEGATIVE); URINE PROTEIN NEGATIVE (NEGATIVE); URINE UROBILINOGEN NEGATIVE mg/dL (0.2-1.0)
[2018-07-27 11:39] LABS: EPI CELLS RARE /HPF (FEW); URINE MUCUS RARE
[2018-07-27 11:50] LABS: INR 1.07 (0.83-1.09); PROTHROMBIN TIME (PATIENT) 12.6 SEC (9.7-13.0)
[2018-07-27 11:53] LABS: ACTIVATED PTT 33.5 SECONDS (25.2-36.5)
[2018-07-27 12:03] LABS: ALBUMIN 3.6 g/dl (3.4-5.0); ALK PHOS 102 U/L (45-117); ANION GAP 4 MMOL/L (8-16); BILIRUBIN,TOTAL 0.4 mg/dL (0.2-1); BLOOD UREA NITROGEN 9 mg/dL (7-18); CALCIUM 8.5 mg/dL (8.5-10.1); CHLORIDE 102 mmol/L (98-107); CO2 29 mmol/L (21-32); CREATININE 0.7 mg/dL (0.55-1.3); GLUCOSE,RANDOM 88 mg/dL (74-106); POTASSIUM 4.1 mmol/L (3.5-5.1); SGOT/AST 48 U/L (15-37); SGPT/ALT 64 U/L (13-61); SODIUM 136 mmol/L (136-145); TOT PROT 8.2 g/dl (6.4-8.2)
--- NOTE | 2018-07-27 12:19 | EKG ---
Test Reason : Blood Pressure : / mmHG Vent. Rate : 062 BPM Atrial Rate : 062 BPM P-R Int : 176 ms QRS Dur : 072 ms QT Int : 432 ms P-R-T Axes : 042 023 016 degrees QTc Int : 438 ms SINUS RHYTHM WITH MARKED SINUS ARRHYTHMIA OTHERWISE NORMAL ECG Confirmed by MD KYLIE, TIAGO ([id number]) on 07/27/2018 12:19:00 PM Referred By: Confirmed By:TIAGO ESPINAL MD
--- NOTE | 2018-07-27 13:15 | PDOC ---
*Physical Exam - Vital Signs Last Vital Signs Temp Pulse Resp BP Pulse Ox 98.1 F 70 17 125/84 99 07/27/18 09:53 07/27/18 09:53 07/27/18 09:53 07/27/18 09:53 07/27/18 09:53 - Physical Exam Comments: 07/27/18 13:14 vss, no pallor abd soft/nt/nd no guarding pelvic per pa Heart Score/ECG Review #1 ECG reviewed & interpreted by me at: 11:30 General ECG Interpretation: Sinus Rhythm, Normal Rate (62), Normal Intervals ( qtc 438), No acute ischemic changes ED Treatment Course - LABORATORY CBC & Chemistry Diagram: 07/27/18 11:20 07/27/18 11:20 - ADDITIONAL ORDERS Additional order review: Laboratory Results 07/27/18 07/27/18 07/27/18 11:20 11:20 11:20 PT with INR INR PTT (Actin FS) Fibrinogen 381.0 Sodium Potassium Chloride Carbon Dioxide Anion Gap BUN Creatinine Creat Clearance w eGFR Random Glucose Calcium Total Bilirubin AST ALT Alkaline Phosphatase Total Protein Albumin Beta HCG, Quant < 1.0 Urine Color Ltyellow Urine Appearance Clear Urine pH 5.0 Ur Specific [place] 1.015 Urine Protein Negative Urine Glucose (UA) Negative Urine Ketones Negative Urine Blood 3+ H Urine Nitrite Negative Urine Bilirubin Negative Urine Urobilinogen Negative Ur Leukocyte Esterase Negative Urine WBC (Auto) 12 Urine RBC (Auto) 65 Ur Epithelial Cells Rare Urine Mucus Rare 07/27/18 07/27/18 11:20 11:20 PT with INR 12.60 INR 1.07 PTT (Actin FS) 33.5 Fibrinogen Sodium 136 Potassium 4.1 Chloride 102 Carbon Dioxide 29 Anion Gap 4 L BUN 9 Creatinine 0.7 Creat Clearance w eGFR > 60 Random Glucose 88 Calcium 8.5 Total Bilirubin 0.4 AST 48 H ALT 64 H Alkaline Phosphatase 102 Total Protein 8.2 Albumin 3.6 Beta HCG, Quant Urine Color Urine Appearance Urine pH Ur Specific [place] Urine Protein Urine Glucose (UA) Urine Ketones Urine Blood Urine Nitrite Urine Bilirubin Urine Urobilinogen Ur Leukocyte Esterase Urine WBC (Auto) Urine RBC (Auto) Ur Epithelial Cells Urine Mucus 07/27/18 11:20 RBC 4.24 MCV 87.6 MCHC 34.6 RDW 14.6 MPV 8.7 D Neutrophils % 52.7 Lymphocytes % 36.8 Monocytes % 8.2 Eosinophils % 2.1 Basophils % 0.2 Medical Decision Making - Medical Decision Making 07/27/18 13:14 32-year-old female with history of menorrhagia requiring transfusion presents with several weeks of heavy vaginal bleeding which is painless, consistent with past menorrhagia. Began feeling lightheaded over the last few days so presents for evaluation concerned that she needs another transfusion. Labs sent, hemoglobin 12.9 Ultrasound with thickened endometrium, otherwise normal hCG negative Hemodynamically stable and well-appearing, will arrange ATTENUATOR follow-up and understands return criteria *DC/Admit/Observation/Transfer Diagnosis at time of Disposition: Menorrhagia Qualifiers: Menorrahagia type: with irregular cycle Qualified Code(s): N92.1 - Excessive and frequent menstruation with irregular cycle - Referrals - Patient Instructions - Post Discharge Activity
[2018-07-27 13:48] VITALS: BP 102/63; PULSE 79; TEMP 97.6
== END 2018-07-27 14:05 | disposition home or self-care (01) ==
LOC: JER 09:35
DX: N92.1 Excessive and frequent menstruation with irregular cycle (principal); D64.9 Anemia, unspecified
CPT/HCPCS: 36415; 76830-TC; 80053; 81003; 81015; 84702; 85025; 85384; 85610; 85730; 86850; 86900; 86901; 87086; 93005; 93010; 99281-25

== ENCOUNTER → 2018-08-20 | Day surgery (SDC) | payer OTHER ==
[2018-08-19 13:36] VITALS: BMI 37.8
[~2018-08-20] MED LIST: MIDAZOLAM HCL 2 MG/2 ML SINGLE DOSE VIAL ONE; PROPOFOL 20 ML ONE; SUCCINYLCHOLINE CHLORIDE 200 MG/10 ML VIAL ONE; ePHEDrine SULFATE 50 MG/1 ML AMPULE ONE
== END | disposition home or self-care (01) ==
LOC: JASU-SURG 05:13
PROVIDERS: ATTEND Obstetrics & Gynecology
PROC: 3E013GC Introduction of Other Therapeutic Substance into Subcutaneous Tissue, Percutaneous Approach (ICD-10-PCS; principal; 2018-08-20)
DX: Z53.8 Procedure and treatment not carried out for other reasons (principal)

== ENCOUNTER 2018-08-25 12:12 | Emergency (ER) | payer OTHER ==
[2018-08-25 12:18] VITALS: BP 157/83; PULSE 86; TEMP 97.9; BMI 37.8
--- NOTE | 2018-08-25 13:40 | PDOC ---
History of Present Illness - General Chief Complaint: Vaginal Bleeding Stated Complaint: VAGINAL BLEEDING Time Seen by Provider: 08/25/18 13:04 History Source: Patient Exam Limitations: No Limitations - History of Present Illness Initial Comments: 08/25/18 13:46 32F with pmh of PCOS and Heavy menses with anemia requiring transfusion 1 year ago presents to the ED for 3 day of particularly heavy bleeding. She has been using 1 pad every two hour for the past 2 days. She was referred to Dr. Franco who was to do a d&c with polyp removal last week but surery got pushed back and scheduled for this coming Thursday. He had previously given her a course of medroxyprogesterone which helped a lot with the bleeding but ran out of it and didn't get a refill on the prescription. She Denies dizziness, weakness or abdominal or pelvic pain but is embarrassed in social and professional situation due to the constant bleeding. Past History - Past Medical History Allergies/Adverse Reactions: Allergies Allergy/AdvReac Type Severity Reaction Status Date / Time oliver Allergy Rash Verified 08/25/18 12:18 No Known Drug Allergies Allergy Verified 08/25/18 12:18 Home Medications: Ambulatory Orders Ferrous Sulfate 325 mg PO DAILY 06/15/17 Medroxyprogesterone Acetate 10 mg PO DAILY #7 tablet 08/25/18 Anemia: No Asthma: No Cancer: No Cardiac Disorders: No CVA: No COPD: No CHF: No Dementia: No Diabetes: No GI Disorders: No Disorders: No HTN: No Hypercholesterolemia: No Liver Disease: No Seizures: No Thyroid Disease: No Other medical history: PCOS - Surgical History Abdominal Surgery: No Appendectomy: No Cardiac Surgery: No Cholecystectomy: No Lung Surgery: No Neurologic Surgery: No Orthopedic Surgery: No - Reproductive History Is Patient Now?: No (#): 3 Para: 3 Cervical CA: No Dysfunctional Uterine Bleeding: No Ectopic : No Endometrial CA: No Polycystic Ovaries: Yes Therapeutic (s) & number: No Tubal Ligation: No Spontaneous : 0 - Immunization History Immunization Up to Date: Yes - Suicide/Smoking/Psychosocial Hx Smoking Status: No Smoking History: Never smoked Have you smoked in the past 12 months: No Number of Cigarettes Smoked Daily: 0 Information on smoking cessation initiated: No Hx Alcohol Use: No Drug/Substance Use Hx: No Substance Use Type: None Hx Substance Use Treatment: No Review of Systems - Review of Systems Able to Perform ROS?: Yes Is the patient limited Uzbek proficient: No Constitutional: No: Symptoms Reported HEENTM: No: Symptoms Reported Respiratory: No: Symptoms reported Cardiac (ROS): No: Symptoms Reported ABD/GI: Yes: Symptoms Reported, See HPI : No: Symptoms Reported Musculoskeletal: No: Symptoms Reported Integumentary: No: Symptoms Reported Neurological: No: Symptoms reported All Other Systems: Reviewed and Negative *Physical Exam - Vital Signs Last Vital Signs Temp Pulse Resp BP Pulse Ox 97.9 F 86 16 157/83 100 08/25/18 12:16 08/25/18 12:16 08/25/18 12:16 08/25/18 12:16 08/25/18 12:16 - Physical Exam General Appearance: Yes: Nourished, Appropriately Dressed. No: Apparent Distress HEENT: positive: EOMI, LU, Normal ENT Inspection Respiratory/Chest: positive: Lungs Clear, Normal Breath Sounds. negative: Chest Tender, Respiratory Distress Cardiovascular: positive: Regular Rhythm, Regular Rate, S1, S2 Gastrointestinal/Abdominal: positive: Normal Bowel Sounds, Flat, Soft. negative : Tender Musculoskeletal: positive: Normal Inspection. negative: CVA Tenderness Extremity: positive: Normal Capillary Refill, Normal Inspection, Normal Range of Motion Integumentary: positive: Normal Color, Dry, Warm Neurologic: positive: Fully Oriented, Alert, Normal Mood/Affect, Normal Response , Motor Strength 5/5 Moderate Sedation - Procedure Monitoring Vital Signs: Procedure Monitoring Vital Signs Temperature 97.9 F 08/25/18 12:16 Pulse Rate 86 08/25/18 12:16 Respiratory Rate 16 08/25/18 12:16 Blood Pressure 157/83 08/25/18 12:16 O2 Sat by Pulse Oximetry (%) 100 08/25/18 12:16 ED Treatment Course - LABORATORY CBC & Chemistry Diagram: 08/25/18 14:00 08/25/18 14:00 Medical Decision Making - Medical Decision Making 08/25/18 13:40 This is likely breakthrough bleeding from stopping the Medroxyprogesterone. Spoke to Dr. Franco who said that if H&H is ok, to restart the patient on medroxyprogesterone for a week. If the patient is anemic, will call back Salvador, +/- transfusion if necessary. 08/25/18 14:33 hemoglobin 9.1. Will give prescription to patient and surgery will be done according to plan on Thursday. patient shared concerns that she might bleed more as the medication took two days to work last time and that she might syncopize like last year. Reassured patient, gave return precautions. 08/25/18 14:39 *DC/Admit/Observation/Transfer Diagnosis at time of Disposition: Breakthrough bleeding - Discharge Dispostion Disposition: HOME Condition at time of disposition: Stable Decision to Admit order: No - Prescriptions Prescriptions: Medroxyprogesterone Acetate 10 mg PO DAILY #7 tablet - Referrals Referrals: Angel Lemons MD [Primary Care Provider] - - Patient Instructions Printed Discharge Instructions: DI for Vaginal Bleeding Additional Instructions: Follow up with Dr. Franco on Thursday. Come back to the emergency department for any new, worsening or concerning symptoms. service delivery supervisor your prescription at the pharmacy. - Post Discharge Activity
[2018-08-25 14:11] LABS: BASO % 1.3 % (0-2.0); EOS % 1.3 % (0-4.5); HEMOGLOBIN 9.1 GM/dL (10.7-15.3); MCH 29.6 pg (25.7-33.7); MEAN CELL VOLUME 84.5 fl (80-96); MEAN PLT VOLUME 8.2 fl (7.5-11.1); MONO % 5.7 % (3.8-10.2); NEUT % 56.7 % (42.8-82.8); PLATELET COUNT 394 K/MM3 (134-434); RBC 3.08 M/mm3 (3.60-5.2); RDW 14.8 % (11.6-15.6); WHITE BLOOD COUNT 8.8 K/mm3 (4.0-10.0)
[2018-08-25 14:26] LABS: INR 1.18 (0.83-1.09); PROTHROMBIN TIME (PATIENT) 13.9 SEC (9.7-13.0)
--- NOTE | 2018-08-25 14:49 | PDOC ---
Attending Attestation - Resident Resident Name: GurrolaBen - ED Attending Attestation I have performed the following: I have examined & evaluated the patient, The case was reviewed & discussed with the resident, I agree w/resident's findings & plan, Exceptions are as noted - HPI HPI: 08/25/18 14:44 The patient is a 32 year old female, with a significant past medical history of PCOS, menorrhagia requiring blood transfusions in the past, who presents to the emergency department with heavy vaginal bleeding for a week. As per the patient , she follows Dr. Franco and was scheduled for DNC this Thursday. She states she was worried she may need a blood transfusion due to the heavier bleeding and her history of transfusion. The patient denies chest pain, shortness of breath, headache and dizziness. The patient denies fever, chills, nausea, vomit, diarrhea and constipation. The patient denies dysuria, frequency, urgency and hematuria. Allergies: NKDA - Physicial Exam PE: 08/25/18 14:47 "GENERAL: Awake, alert, and fully oriented, in no acute distress. HEAD: No signs of trauma EYES: PERRLA, EOMI, sclera anicteric, conjunctiva clear ENT: Auricles normal inspection, hearing grossly normal, nares patent, oropharynx clear without exudates. Moist mucosa NECK: Nontender, no stepoffs, Normal ROM, supple, no lymphadenopathy, JVD, or masses LUNGS: Breath sounds equal, clear to auscultation bilaterally. No wheezes, and no crackles HEART: Regular rate and rhythm, normal S1 and S2, no murmurs, rubs or gallops ABDOMEN: Soft, nontender, normoactive bowel sounds. No guarding, no rebound. No masses EXTREMITIES: Normal range of motion, no edema. No clubbing or cyanosis. No cords, erythema, or tenderness NEUROLOGICAL: Cranial nerves II through XII intact. 5/5 strength and sensation in all extremities, Normal speech, normal gait, normal cerebellar function SKIN: Warm, Dry, normal turgor, no rashes or lesions noted. - Medical Decision Making 08/25/18 14:47 32 F with heavy vaginal bleeding. Has known endometrial polyp and is scheduled for DNC this Thursday. Pt HD stable with no symptoms of severe anemia. - Labs, coags, T&S Case discussed with Dr. Franco, who recommends starting pt on medroxyprogesterone and f/u as scheduled this Thursday if Hb is stable. 08/25/18 14:54 Hb 9.0 Pt with stable vitals, no symptoms concerning for anemia No indication for transfusion at this time. Pt is well appearing, with normal vitals. Clinically stable for DC at this time. I discussed the physical exam findings, ancillary test results and final diagnoses with the patient. I answered all of the patient's questions. The patient was satisfied with the care received and felt comfortable with the discharge plan and treatment plan. The patient agrees to follow up with the primary care physician within 24-72 hours.
[2018-08-25 14:53] LABS: ALBUMIN 3.4 g/dl (3.4-5.0); ALK PHOS 80 U/L (45-117); ANION GAP 7 MMOL/L (8-16); BILIRUBIN,TOTAL 0.5 mg/dL (0.2-1); BLOOD UREA NITROGEN 8 mg/dL (7-18); CALCIUM 8.2 mg/dL (8.5-10.1); CHLORIDE 106 mmol/L (98-107); CO2 25 mmol/L (21-32); CREATININE 0.7 mg/dL (0.55-1.3); GLUCOSE,RANDOM 93 mg/dL (74-106); POTASSIUM 4.3 mmol/L (3.5-5.1); SGOT/AST 19 U/L (15-37); SGPT/ALT 20 U/L (13-61); SODIUM 139 mmol/L (136-145); TOT PROT 7.4 g/dl (6.4-8.2)
== END 2018-08-25 15:18 | disposition home or self-care (01) ==
LOC: JER 12:12
DX: N92.1 Excessive and frequent menstruation with irregular cycle (principal); T38.5X5A Adverse effect of other estrogens and progestogens, initial encounter
CPT/HCPCS: 36415; 80053; 85025; 85610; 85730; 86850; 86900; 86901; 99282-25

== ENCOUNTER 2018-08-27 11:57 | Day surgery (SDC) | payer OTHER ==
[2018-08-26 10:33] VITALS: BMI 37.8
--- NOTE | 2018-08-27 07:56 | HP ---
History & Physical Update - Physical Physical: No Change - Assessment Assessment: No Change - Plan Plan: No Change (for hysteroscopy, D&C, polypectomy)
[2018-08-27] MEDS ORDERED: LIDOCAINE HCL/PF 2% SDV 5ML VIAL ONE (13:26)
[2018-08-27] MEDS ORDERED: PROPOFOL 20 ML ONE (13:27)
[2018-08-27] MEDS ORDERED: MIDAZOLAM HCL 2 MG/2 ML SINGLE DOSE VIAL ONE (13:27)
[2018-08-27] MEDS ORDERED: DEXAMETHASONE SOD PHOSPHATE 4 MG/1 ML VIAL ONE (13:58)
[2018-08-27] MEDS ORDERED: ONDANSETRON 4 MG/2 ML VIAL IVPUSH PRN (14:00)
[2018-08-27] MEDS ORDERED: IBUPROFEN 800 MG/8 ML IJ IVPB PRN (14:00)
[2018-08-27] MEDS ORDERED: oxyCODONE HCL 5 MG TABLET PO PRN (14:00)
[2018-08-27] MEDS ORDERED: ELECTROLYTE-148 SOLN 1,000 ML IV SCH (14:00)
[2018-08-27] MEDS ORDERED: IBUPROFEN 600 MG TABLET (FP) PO PRN (14:00)
[2018-08-27] MEDS ORDERED: LACTATED RINGERS SOLUTION 1,000 ML IV SCH (14:30)
--- NOTE | 2018-08-27 22:38 | OP ---
DATE OF OPERATION: 08/27/2018 PREOPERATIVE DIAGNOSES: Menometrorrhagia, endometrial polyp. POSTOPERATIVE DIAGNOSES: Menometrorrhagia, endometrial polyp. PROCEDURE: Hysteroscopy, dilatation and curettage, and polypectomy. SURGEON: Tang Franco MD ANESTHESIA: General. ANESTHESIOLOGIST: Anaya Padgett MD ESTIMATED BLOOD LOSS: 100 mL DESCRIPTION OF OPERATION: Patient was taken to the operating room. After adequate general anesthesia in dorsal lithotomy position, examination under anesthesia revealed the external genitalia to be normal. Cervix was slightly open with some bleeding from the os. Uterus was prominent and globular. Adnexa: No masses were palpable. Then, with weighted speculum in the vagina, anterior lip of the cervix was grasped with a single-tooth tenaculum. Cervix was dilated, did not require dilation. Hysteroscope was introduced. Visualization of endocervical canal appeared to be normal. Endometrium was prominent, irregular, with 2 small polyps at the fundal area. No submucous myoma seen. Both cornual regions of the uterus were visualized. Both ostia were seen. No other abnormality was seen. Polyps were removed, and then, endometrium was curetted with a sharp curette. Patient tolerated the procedure well, left the OR in good condition. Ramon [id number]
[2018-08-30 18:14] VITALS: BP 122/72; PULSE 84; TEMP 98
--- NOTE | 2018-09-01 17:14 | PATH ---
Surgical Pathology Report Patient Name: NILESH CORTEZ [facility]. Rec. #: [id number] /Age/Gender: 1985 (Age: 32) / F Account: [id number] Location: [facility] SURGICAL Taken: 08/27/2018 Received: 08/30/2018 Reported: 09/01/2018 Physicians: Tang Franco M.D. Specimen(s) Received A: ENDOMETRIAL POLYP B: ENDOMETRIAL CURETTINGS Clinical History Excessive frequent menstruation Final Diagnosis A. ENDOMETRIAL POLYP, BIOPSY: POLYPOID FRAGMENTS OF ENDOMETRIUM WITH GLANDULAR AND STROMAL BREAKDOWN, AND BENIGN CERVICAL TISSUE. B. ENDOMETRIAL CURETTINGS, DILATION AND CURETTAGE: FRAGMENTS OF ENDOMETRIUM WITH MARKED GLANDULAR AND STROMAL BREAKDOWN, SUPERFICIAL MYOMETRIUM, AND BENIGN CERVICAL TISSUE. Electronically Signed Ana Rosa Rowley M.D. Gross Description A. Received in formalin labeled "endometrial polyp," is a 2.3 x 1.5 x 0.3 cm aggregate of rodarte-brown soft tissue fragments admixed with blood clot. The formalin is filtered and the specimen is entirely submitted in one cassette. B. Received in formalin labeled "endometrial curettings," is a 4.0 x 3.3 x 0.4 cm aggregate of rodarte-brown soft tissue fragments admixed with blood clot. The formalin is filtered and the specimen is entirely submitted in 2 cassettes. /08/30/201808/30/2018
== END 2018-08-27 16:50 | disposition home or self-care (01) ==
LOC: JASU-SURG 11:57
PROVIDERS: ATTEND Obstetrics & Gynecology
PROC: 0UDB8ZX Extraction of Endometrium, Via Natural or Artificial Opening Endoscopic, Diagnostic (ICD-10-PCS; 2018-08-27)
PROC: 0UB98ZX Excision of Uterus, Via Natural or Artificial Opening Endoscopic, Diagnostic (ICD-10-PCS; principal; 2018-08-27 13:30)
DX: N84.0 Polyp of corpus uteri (principal); N92.1 Excessive and frequent menstruation with irregular cycle
CPT/HCPCS: 84703; 88305-TC; 94760